=== PATIENT | female | born 1950 | race Caucasian/White ===

== ENCOUNTER 2018-11-26 09:03 | Observation (INO) | payer MEDICARE ==
[~2018-11-26] VITALS: Ht 165.1 cm; Wt 87.5 kg
--- NOTE | 2018-11-26 09:33 | NUR ---
Pt in bed, and Dr. Kirkpatrick at bedside. Pt denies any current needs.
[2018-11-26] MEDS ORDERED: WARF1TAB74 PO (09:38)
[2018-11-26] MEDS ORDERED: METO100T5 PO (09:38)
[2018-11-26 10:06] LABS: BASOPHILS # (AUTO) 0.02 x10^3/uL (0-0.1); BASOPHILS % (AUTO) 0 % (0-1); EOSINOPHILS % (AUTO) 2 % (1-7); LYMPHOCYTES # (AUTO) 3.01 x10^3/uL (1-3.4); LYMPHOCYTES % (AUTO) 33 % (22-44); MD NO; MEAN CORPUSCULAR HEMOGLOBIN 27.5 pg (27.0-34.8); MEAN CORPUSCULAR HGB CONC 32.6 g/dL (32.4-35.8); MEAN CORPUSCULAR VOLUME 84.1 fL (80-100); MEAN PLATELET VOLUME 8.2 fL (7.4-10.4); MONOCYTES # (AUTO) 0.44 x10^3/uL (0.2-0.8); MONOCYTES % (AUTO) 5 % (2-9); NEUTROPHILS # (AUTO) 5.58 x10^3/uL (1.8-6.8); NEUTROPHILS % (AUTO) 60 % (42-75); PLATELET COUNT 343 x10^3/uL (130-400); RED BLOOD COUNT 4.54 x10^6/uL (3.82-5.3); RED CELL DISTRIBUTION WIDTH 15.9 % (9.6-15.2)
[2018-11-26 10:12] LABS: INTERNATIONAL NORMALIZED RATIO 1.89 (0.93-1.1); PROTHROMBIN TIME 19.4 Seconds (9.6-11.5)
[2018-11-26 10:15] LABS: ALBUMIN 3.4 g/dL (3.4-5.0); ANION GAP 5 mmol/L (5-15); CHLORIDE 111 mmol/L (98-107); CREATININE 0.76 mg/dL (0.55-1.02)
[2018-11-26 10:19] LABS: TROPONIN I < 0.015 ng/mL (0.000-0.045)
--- NOTE | 2018-11-26 10:38 | NUR ---
Pt resting in bed. Updated on plan of care. Questions about tests and procedures addressed, pt denies any further needs or concerns at thist time.
--- NOTE | 2018-11-26 10:48 | NUR ---
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 Updated on plan of care, denies any needs or concerns at this time.
--- NOTE | 2018-11-26 13:15 | NUR ---
Pt decided to stay for overnight admission. ERP aware. Report called to [facility], receiving RN. Pt denies any
--- NOTE | 2018-11-26 14:10 | NUR ---
This nurse and charge both attempted to start an IV prior to admission to general floor. Pt vasculature difficult, multiple attempts unsuccessful. Pt refusing IV at this time, states "I'm just here to stay the night and see if anything else happens". Pt has no medications or IV infusions ordered at this time. Pt denies any further needs or concerns at this time.
--- NOTE | 2018-11-26 14:12 | NUR ---
Receiving floor notified of pt status.
[2018-11-26 15:03] VITALS: BP 151/80
[2018-11-26 15:19] VITALS: BP 121/76
[2018-11-26] MEDS ORDERED: ONDANSETRON 2MG/ML, 2ML IVPush PRN (17:00)
[2018-11-26] MEDS ORDERED: hydrALAzine 20 MG/ML, 1ML IVPush PRN (17:00)
[2018-11-26] MEDS ORDERED: NITROGLYCERIN 0.4 MG BOTTLE (25 TABS) SL PRN (17:00)
[2018-11-26] MEDS ORDERED: DOCUSATE 100 MG CAPSULE PO PRN (17:00)
[2018-11-26] MEDS ORDERED: ENOXAPARIN 40 MG/0.4 ML SQ SCH (17:00)
[2018-11-26] MEDS ORDERED: ACETAMINOPHEN 325 MG TABLET PO PRN (17:00)
[2018-11-26 17:49] LABS: TROPONIN I < 0.015 ng/mL (0.000-0.045)
[2018-11-26] MEDS ORDERED: WARFARIN 2 MG TABLET PO-COUM SCH ×2 (18:00→21:00)
[2018-11-26 19:49] VITALS: BP 145/76
[2018-11-26] MEDS ORDERED: METOPROLOL SUCCINATE 100 MG TAB.ER.24H ONE ×2 (21:55→21:59)
[2018-11-26] MEDS ORDERED: METOPROLOL SUCCINATE 100 MG TAB.ER.24H PO SCH (22:00)
[2018-11-26 22:47] LABS: TROPONIN I < 0.015 ng/mL (0.000-0.045)
[2018-11-27 02:05] VITALS: BP 132/79
[2018-11-27 05:53] LABS: INTERNATIONAL NORMALIZED RATIO 1.73 (0.93-1.1); PROTHROMBIN TIME 17.8 Seconds (9.6-11.5)
[2018-11-27 05:57] LABS: ANION GAP 7 mmol/L (5-15); CALCIUM 9.1 mg/dL (8.5-10.1); CHLORIDE 109 mmol/L (98-107); CHOLESTEROL, TOTAL 205 mg/dL (140-239); CREATININE 0.75 mg/dL (0.55-1.02); TRIGLYCERIDES 101 mg/dL (50-200); VLDL CHOLESTEROL 20 mg/dL (0-25)
[2018-11-27 05:59] LABS: CHOL/HDL RATIO 4.2; HDL CHOL % 24 % (28-40); HDL CHOLESTEROL (DIRECT) 49 mg/dL (40-60); LDL CHOLESTEROL,CALCULATED 136 mg/dL (54-169); LDL/HDL RATIO 2.8 (0.5-3.0)
[2018-11-27 06:02] LABS: BASOPHILS # (AUTO) 0.08 x10^3/uL (0-0.1); BASOPHILS % (AUTO) 1 % (0-1); EOSINOPHILS # (AUTO) 0.29 x10^3/uL (0-0.4); EOSINOPHILS % (AUTO) 3 % (1-7); LYMPHOCYTES # (AUTO) 3.89 x10^3/uL (1-3.4); LYMPHOCYTES % (AUTO) 39 % (22-44); MD NO; MEAN CORPUSCULAR HEMOGLOBIN 26.7 pg (27.0-34.8); MEAN CORPUSCULAR HGB CONC 31.9 g/dL (32.4-35.8); MEAN CORPUSCULAR VOLUME 83.5 fL (80-100); MEAN PLATELET VOLUME 8.1 fL (7.4-10.4); MONOCYTES # (AUTO) 0.51 x10^3/uL (0.2-0.8); MONOCYTES % (AUTO) 5 % (2-9); NEUTROPHILS # (AUTO) 5.15 x10^3/uL (1.8-6.8); NEUTROPHILS % (AUTO) 52 % (42-75); PLATELET COUNT 286 x10^3/uL (130-400); RED BLOOD COUNT 4.38 x10^6/uL (3.82-5.3); RED CELL DISTRIBUTION WIDTH 15.6 % (9.6-15.2)
[2018-11-27 08:00] VITALS: BP 135/75
[2018-11-27] MEDS ORDERED: METOPROLOL SUCCINATE 100 MG TAB.ER.24H PO SCH (09:00)
== END 2018-11-27 12:53 | disposition home or self-care (01) ==
LOC: ED 11:07 → INTOOBSV 12:33 → EDIP 12:33 → 5SO 14:49 → DCLOUNGE 11-27 12:28
PROVIDERS: ADMIT Family Medicine; ATTEND Family Medicine
DX: R07.2 Precordial pain (principal); I48.91 Unspecified atrial fibrillation; R94.31 Abnormal electrocardiogram [ECG] [EKG]; D68.69 Other thrombophilia; I10 Essential (primary) hypertension; Z95.0 Presence of cardiac pacemaker; Z79.01 Long term (current) use of anticoagulants; Z79.899 Other long term (current) drug therapy; Z87.442 Personal history of urinary calculi; Z87.891 Personal history of nicotine dependence; Z90.710 Acquired absence of both cervix and uterus; Z88.5 Allergy status to narcotic agent; Z88.1 Allergy status to other antibiotic agents; Z88.8 Allergy status to other drugs, medicaments and biological substances
CPT/HCPCS: 36415; 71045; 80048; 80061; 82040; 83735; 83880; 84100; 84484; 85025; 85610; 93005; 93970; 99284; G0378